=== PATIENT | male | born 1940 | race Caucasian/White ===

== ENCOUNTER 2021-01-11 08:16 | Inpatient (IN) | payer MEDICARE ==
[2021-01-11] MEDS ORDERED: Acetaminophen 650 MG Suppository ONE (08:18)
[2021-01-11] MEDS ORDERED: Vancomycin 1 GM/200 ML BAG ONE (08:25)
[2021-01-11] MEDS ORDERED: Cefepime 2 GM VIAL ONE (08:25)
[2021-01-11] MEDS ORDERED: fentaNYL Citrate/PF 2,000 MCG in Sodium Chloride 0.9% 60 ML IV SCH (08:45)
[2021-01-11 08:46] LABS: Hemoglobin 10.7 g/dL (14.0-18.0); Mean Corpuscular HGB CONC 32.7 g/dL (32.0-36.0); Mean Corpuscular Hemoglobin 32.3 pg (27.0-31.0); Mean Corpuscular Volume 98.7 fL (78.0-98.0); RBC Distribution Width 12.7 % (11.5-14.5); Red Blood Cell (RBC) Count 3.31 mill/uL (4.70-6.10)
[2021-01-11 08:52] LABS: Actual Bicarbonate (HCO3a) 22.3 mEq/L (22-28); Analyzer IN Cardio ER; Base Excess (BEa) -3.4 mEq/L (-2.0 to +3.0); CO2 Tension 42.7 mmHg (35.0-45.0); Calcium, Ionized (arterial) 1.15 mmol/L (1.12-1.30); Carboxyhemoglobin (COHb) 0.3 gm% (0.0-3.0); Hemoglobin (Hb) 10.8 g/dL (14.0-18.0); O2 Tension (PaO2), arterial 196.2 mmHg (> 60.0); Potassium - ABG Lab 3.88 mmol/L (3.70-5.30); pH, Arterial 7.34 (7.35-7.45)
[2021-01-11 08:55] LABS: ALV-art Gradient 249.525 mmHg (0-20); Puncture Site RRA
[2021-01-11 09:01] LABS: ALT (SGPT) 7 U/L (8-55); AST (SGOT) 29 U/L (5-34); Albumin 3.1 g/dL (3.4-4.8); Alkaline Phosphatase 85 U/L (40-110); Anion Gap 13 mmol/L (10-20); BUN (Urea Nitrogen) 28 mg/dL (8.4-25.7); Bilirubin, Total 0.7 mg/dL (0.2-1.2); CK (CPK) 48 U/L (30-200); Calc. Creatinine Clearance 0 mL/min (70-130); Calcium 8.3 mg/dL (7.8-10.44); Carbon Dioxide 21 mmol/L (23-31); Chloride 106 mmol/L (98-107); Glucose 197 mg/dL (83-110); Lipase Less than 4 U/L (8-78); Potassium 3.9 mmol/L (3.5-5.1); Protein, Total 7.1 g/dL (5.8-8.1); Sodium 136 mmol/L (136-145)
[2021-01-11 09:08] LABS: Band 1 % (5-11); Lymphocytes 3 % (21-51); MDiff Complete? YES; Mean Platelet Volume 9.5 fL (7.4-10.4); Monocytes 10 % (0-10); Neutrophil 86 % (42-75); Platelet Count 121 thou/uL (130-400); Platelet Morphology Comment Appears Adequate; White Blood Cell (WBC) Count 22.9 thou/uL (4.8-10.8)
[2021-01-11 09:21] LABS: CKMB 0.6 ng/mL (0-6.6)
[2021-01-11 09:24] LABS: Bilirubin Negative (Negative); Blood, Urine Negative (Negative); Clarity Clear (Clear); Glucose, Urine (Dipstick) Normal (Negative); Ketone, Urine 20 mg/dL (Negative); Leukocyte 25 Leu/uL (Negative); Nitrite Negative (Negative); Protein, Urine (Dipstick) 30 mg/dL (Neg-Trace); RBC/HPF 0-3 HPF (0-3); Specific Gravity, Urine 1.018 (1.002-1.036); Squamous Epithelial None Seen HPF (0-3); Urobilinogen Normal mg/dL (Less than 2)
[2021-01-11 09:26] LABS: Acetaminophen Less than 6.0 mcg/mL (10.0-30.0); Alcohol Less than 10 mg/dL (Less than 10); Salicylate Less than 8.0 mg/dL (15.0-30.0)
[2021-01-11 09:27] LABS: INR-International Normal Ratio 1.5; Prothrombin Time 18.6 sec (12.0-14.7)
[2021-01-11 09:28] LABS: PTT 49.4 sec (22.9-36.1)
[2021-01-11 09:31] LABS: Medtox Reader # READER 4
[2021-01-11 09:32] LABS: Amphetamine Not Detected (NotDetected); Barbiturates Screen Not Detected (NotDetected); Benzodiazepine Screen Not Detected (NotDetected); Cocaine Metabolite Screen Not Detected (NotDetected); Medtox Control Line Valid? VALID (VALID); Methadone Not Detected (NotDetected); Methamphetamine Not Detected (NotDetected); Opiate Screen Not Detected (NotDetected); Oxycodone Screen Not Detected (NotDetected); Phencyclidine (PCP) Not Detected (NotDetected); THC/Cannabinoid Screen Not Detected (NotDetected); Tricyclic Screen Not Detected (NotDetected)
[2021-01-11] MEDS ORDERED: manNITOL 20% 500 ML ONE (09:32)
[2021-01-11 09:36] LABS: Bacteria/HPF 2+ HPF (None Seen)
[2021-01-11] MEDS ORDERED: manNITOL 20% 500 ML IVPB SCH (09:45)
[2021-01-11 09:47] LABS: D-Dimer Test Greater than 20.00 *mcg/mL (0.27-0.43)
[2021-01-11 09:58] LABS: SARS-CoV-2 NAA Rapid Test Not Detected (NotDetected)
[2021-01-11] MEDS ORDERED: Norepinephrine 8 MG/0.9% NS 250 ML ONE (11:17)
[2021-01-11] MEDS ORDERED: Norepinephrine 8 MG/0.9% NS 250 ML IVPB PRN (11:37)
[2021-01-11] MEDS ORDERED: Morphine 2 MG/ML VIAL SLOW IVP PRN ×2 (11:40→12:00)
[2021-01-11] MEDS ORDERED: Ventilator Sedation Protocol 1 EACH FS SCH (11:45)
[2021-01-11] MEDS ORDERED: DISCONTINUE PREVIOUS NARCOTIC PAIN MEDICATIONS AND BENZODIAZEPINES FS SCH (12:00)
[2021-01-11] MEDS ORDERED: Fentanyl CADD 100 ML IV SCH (12:00)
[2021-01-11] MEDS ORDERED: Propofol BOLUS 1,000 MG/100 ML VIAL IV PRN (12:00)
[2021-01-11] MEDS ORDERED: Propofol 1,000 MG/100 ML VIAL IV PRN (12:00)
[2021-01-11] MEDS ORDERED: Lorazepam 2 MG/ML VIAL SLOW IVP PRN (12:00)
[2021-01-11] MEDS ORDERED: Fentanyl BOLUS 250 ML IVPB PRN (12:00)
[2021-01-11] MEDS ORDERED: Acetaminophen 650 MG Suppository PR PRN (14:17)
[2021-01-11] MEDS ORDERED: Haloperidol Lactate 5 MG/ML VIAL SLOW IVP PRN (14:18)
[2021-01-11] MEDS ORDERED: Scopolamine 1.5 mg/72 hour Patch TD PRN (14:19)
[2021-01-11 14:43] VITALS: BMI 23.8
[2021-01-11 14:56] VITALS: BP 130/54
[2021-01-11] MEDS: Morphine 4 MG/ML VIAL SLOW IVP PRN ×2 (15:52→18:18)
[2021-01-12 16:30] VITALS: TEMP 98.3
== END 2021-01-12 18:37 | disposition hospice, inpatient (51) | DRG 64 ==
LOC: ERS 08:16 → EDBD 08:16 → CCU 11:22
PROVIDERS: ADMIT Family Medicine; ATTEND Family Medicine
PROC: 5A1935Z Respiratory Ventilation, Less than 24 Consecutive Hours (ICD-10-PCS; principal; 2021-01-11)
PROC: 0D9670Z Drainage of Stomach with Drainage Device, Via Natural or Artificial Opening (ICD-10-PCS; 2021-01-11)
PROC: 0B21XEZ Change Endotracheal Airway in Trachea, External Approach (ICD-10-PCS; 2021-01-11)
PROC: 3E033XZ Introduction of Vasopressor into Peripheral Vein, Percutaneous Approach (ICD-10-PCS; 2021-01-11)
DX: I61.1 Nontraumatic intracerebral hemorrhage in hemisphere, cortical (principal); G93.5 Compression of brain; Z66 Do not resuscitate; Z51.5 Encounter for palliative care; Z20.822 Contact with and (suspected) exposure to COVID-19; I95.9 Hypotension, unspecified; G20 Parkinson's disease; I25.10 Atherosclerotic heart disease of native coronary artery without angina pectoris; I60.9 Nontraumatic subarachnoid hemorrhage, unspecified; I61.5 Nontraumatic intracerebral hemorrhage, intraventricular; F02.80 Dementia in other diseases classified elsewhere, unspecified severity, without behavioral disturbance, psychotic disturbance, mood disturbance, and anxiety; Z95.0 Presence of cardiac pacemaker; Z78.1 Physical restraint status; Z95.2 Presence of prosthetic heart valve; Z91.81 History of falling
CPT/HCPCS: 0240U; 31500; 36415; 36600; 51702; 70450; 71045; 80053; 80306; 80307; 81003; 81015; 82140; 82550; 82553; 82805; 83605; 83690; 83880; 84484; 85025; 85379; 85610; 85730; 87040; 87077; 87086; 87149; 87186; 93005; 94002; 94760; 96361; 96365; 96366; 96367; 99292; J0692; J2270; J3010; J3370; J3490; J7799